=== PATIENT | female | born 1965 | race Caucasian/White ===

== ENCOUNTER 2019-09-13 14:20 | Emergency (ER) | payer BC ==
[2019-09-13 14:31] VITALS: BP 141/83; PULSE 72; TEMP 98.6; BMI 20.1
[2019-09-13] MEDS ORDERED: SODIUM CHLORIDE 1,000 ML IV STA (15:05)
--- NOTE | 2019-09-13 15:17 | PDOC ---
History of Present Illness - General Chief Complaint: Pain Stated Complaint: ABDOMINAL PAIN RADIATES TO CHEST Time Seen by Provider: 09/13/19 14:25 - History of Present Illness Initial Comments: 09/13/19 15:15 54 F with h/o fibromyalgia, GERD, presenting to ED with epigastric pain, N+V. Pt states that the pain woke her from sleep this morning at 3 am. She denies any F/C. States the pain radiates into her chest. Denies SOB. Pt went to an urgent care, where she had an EKG and UA that were normal. They gave her reglan , which made the pain worse. Pt was then instructed to come to the ED. While in the ED, pt began to vomit. Denies any blood or coffee grounds emesis. Denies diarrhea. Pt has no prior abdominal surgeries. Past History - Past Medical History Allergies/Adverse Reactions: Allergies Allergy/AdvReac Type Severity Reaction Status Date / Time No Known Allergies Allergy Unverified 09/13/19 15:09 Home Medications: Ambulatory Orders NK [No Known Home Medication] 09/13/19 COPD: No Other medical history: DENIES - Psycho Social/Smoking Cessation Hx Smoking History: Never smoked Hx Alcohol Use: Yes (SOCIAL) Drug/Substance Use Hx: No Review of Systems - Review of Systems Comments:: 09/13/19 15:16 "GENERAL/CONSTITUTIONAL: No fever or chills. No weakness. HEAD, EYES, EARS, NOSE AND THROAT: No change in vision. No ear pain or discharge. No sore throat. CARDIOVASCULAR: No chest pain, no shortness of breath, no loss of consciousness RESPIRATORY: No cough, wheezing, or hemoptysis. GASTROINTESTINAL: + epigastric pain, N+V, no diarrhea or constipation. GENITOURINARY: No dysuria, frequency, or change in urination. MUSCULOSKELETAL: No joint or muscle swelling or pain. No neck or back pain. SKIN: No rash NEUROLOGIC: No vertigo, no change in strength/sensation. ENDOCRINE: No increased thirst. No abnormal weight change. HEMATOLOGIC/LYMPHATIC: No anemia, easy bleeding, or history of blood clots. ALLERGIC/IMMUNOLOGIC: No hives or skin allergy. *Physical Exam - Vital Signs Last Vital Signs Temp Pulse Resp BP Pulse Ox 98.6 F 72 16 141/83 100 09/13/19 14:22 09/13/19 14:22 09/13/19 14:22 09/13/19 14:22 09/13/19 14:22 - Physical Exam 09/13/19 15:17 "GENERAL: Awake, alert, and fully oriented, in no acute distress. HEAD: No signs of trauma EYES: PERRLA, EOMI, sclera anicteric, conjunctiva clear ENT: Auricles normal inspection, hearing grossly normal, nares patent, oropharynx clear without exudates. Moist mucosa NECK: Nontender, no stepoffs, Normal ROM, supple, no lymphadenopathy, JVD, or masses LUNGS: Breath sounds equal, clear to auscultation bilaterally. No wheezes, and no crackles HEART: Regular rate and rhythm, normal S1 and S2, no murmurs, rubs or gallops ABDOMEN: + epigastric and RUQ TTP, normoactive bowel sounds. No guarding, no rebound. No masses EXTREMITIES: Normal range of motion, no edema. No clubbing or cyanosis. No cords, erythema, or tenderness NEUROLOGICAL: Cranial nerves II through XII intact. 5/5 strength and sensation in all extremities, Normal speech, normal gait, normal cerebellar function SKIN: Warm, Dry, normal turgor, no rashes or lesions noted. ED Treatment Course - LABORATORY CBC & Chemistry Diagram: 09/13/19 15:10 09/13/19 15:10 - RADIOLOGY Radiology Studies Ordered: Category Date Time Status CHEST PA & LAT [RAD] Stat Radiology 09/13/19 15:05 Ordered ABDOMEN US [US] Stat Ultrasound 09/13/19 15:14 Ordered Medical Decision Making - Medical Decision Making 09/13/19 15:17 54 F with epigastric pain, N+V. Will evaluate for pancreatitis vs cholecystitis. Pt with no lower abdominal tenderness. EKG without signs of ischemia. - labs, lipase - CXR - RUQ sono - GI cocktail Labs wnl CXR and US normal Pt with continued pain despite medications Will obtain CT scan Pt signed out to oncoming attending at 7PM Discharge - Discharge Information Problems reviewed: Yes Clinical Impression/Diagnosis: Enteritis Condition: Improved Disposition: HOME - Follow up/Referral Referrals: [facility] [place] [facility] [place] [Provider Group] - Patient Discharge Instructions Patient Printed Discharge Instructions: DI for Abdominal Pain-Adult Additional Instructions: Return to the emergency department immediately with ANY new, persistent or worsening symptoms including worsening abdominal pain, fevers, inability to tolerate oral intake, chest pain, shortness of breath or any other concerns. Stay well hydrated. You MUST call and follow up with your primary care doctor and GI doctor with in 5 days for reevluation. Your emergency department visit is not complete without a followup with your doctor for reevaluation. Please make sure your doctor reviews the results of your emergency evaluation. Print Language: MOROCCAN - Post Discharge Activity
[2019-09-13 15:27] LABS: BASO % 0.5 % (0-2.0); EOS % 0.9 % (0-4.5); HEMOGLOBIN 14.1 GM/dl (10.7-15.3); LYMPH % 19.1 % (8-40); MCH 29.9 pg (25.7-33.7); MCHC 32.8 g/dl (32.0-36.0); MEAN PLT VOLUME 8.9 fl (7.5-11.1); MONO % 5.1 % (3.8-10.2); NEUT % 74.4 % (42.8-82.8); PLATELET COUNT 283 K/MM3 (134-434); RBC 4.73 M/mm3 (3.60-5.2); RDW 12.7 % (11.6-15.6); WHITE BLOOD COUNT 6.3 K/mm3 (4.0-10.8)
[2019-09-13] MEDS ORDERED: ACETAMINOPHEN INJECTION 100 ML IVPB ONE (15:29)
[2019-09-13] MEDS ORDERED: FAMOTIDINE 20 MG/50 ML IVPB 20 MG/50 ML MG IVPB ONE ×2 (15:29→15:30)
[2019-09-13] MEDS ORDERED: MAG HYDROX/AL HYDROX/SIMETH 30 ML UNIT-DOSE CUP ONE (15:29)
[2019-09-13] MEDS ORDERED: ONDANSETRON 4 MG/2 ML VIAL ONE (15:30)
[2019-09-13] MEDS ORDERED: ACETAMINOPHEN 1000 MG/100 ML VIAL (NON FORMULARY) IVPB ONE (15:30)
[2019-09-13] MEDS ORDERED: ONDANSETRON 4 MG/2 ML VIAL IVPB ONE (15:30)
[2019-09-13] MEDS ORDERED: MAG HYDROX/AL HYDROX/SIMETH 30 ML UNIT-DOSE CUP PO ONE (15:30)
[2019-09-13 15:35] LABS: ALBUMIN 4.6 g/dl (3.4-5.0); BILIRUBIN,TOTAL 0.8 mg/dl (0.2-1); CREATININE 0.8 mg/dl (0.55-1.3); POTASSIUM 3.5 mmol/L (3.5-5.1); TOT PROT 7.6 g/dl (6.4-8.2)
[2019-09-13] MEDS ORDERED: morphine CARPU-JECT 4 MG/1 ML DISP.SYRIN IVPUSH ONE (15:44)
[2019-09-13] MEDS ORDERED: morphine SULFATE 4 MG/ML VIAL ONE (15:44)
--- NOTE | 2019-09-13 20:40 | PDOC ---
*Physical Exam - Vital Signs Last Vital Signs Temp Pulse Resp BP Pulse Ox 98.6 F 72 16 141/83 100 09/13/19 14:22 09/13/19 14:22 09/13/19 14:22 09/13/19 14:22 09/13/19 14:22 ED Treatment Course - LABORATORY CBC & Chemistry Diagram: 09/13/19 15:10 09/13/19 15:10 - ADDITIONAL ORDERS Additional order review: Laboratory Results 09/13/19 09/13/19 09/13/19 16:50 15:10 15:10 Sodium Potassium Chloride Carbon Dioxide Anion Gap BUN Creatinine Est GFR (CKD-EPI)AfAm Est GFR (CKD-EPI)NonAf Random Glucose Calcium Total Bilirubin AST ALT Alkaline Phosphatase Creatine Kinase 132 Troponin I Total Protein Albumin Lipase 135 Urine Color Yellow Urine Appearance Cloudy Urine pH 8.5 H Urine Protein Negative Urine Glucose (UA) Negative Urine Ketones 2+ H Urine Blood Negative Urine Nitrite Negative Urine Bilirubin Negative Urine Urobilinogen 0.2 Ur Leukocyte Esterase Negative 09/13/19 09/13/19 15:10 15:10 Sodium 137 Potassium 3.5 Chloride 99 Carbon Dioxide 29 Anion Gap 9 BUN 12.0 Creatinine 0.8 Est GFR (CKD-EPI)AfAm 97.55 Est GFR (CKD-EPI)NonAf 84.17 Random Glucose 100 Calcium 10.0 Total Bilirubin 0.8 AST 22 ALT 21 Alkaline Phosphatase 62 Creatine Kinase Troponin I < 0.03 Total Protein 7.6 Albumin 4.6 Lipase Urine Color Urine Appearance Urine pH Urine Protein Urine Glucose (UA) Urine Ketones Urine Blood Urine Nitrite Urine Bilirubin Urine Urobilinogen Ur Leukocyte Esterase 09/13/19 15:10 RBC 4.73 MCV 91.0 MCHC 32.8 RDW 12.7 MPV 8.9 Neutrophils % 74.4 Lymphocytes % 19.1 Monocytes % 5.1 Eosinophils % 0.9 Basophils % 0.5 - Medications Given in the ED: ED Medications Discontinued Medications Generic Name Dose Route Start Last Admin Trade Name Freq PRN Reason Stop Dose Admin Acetaminophen 1,000 mg 09/13/19 15:30 09/13/19 15:35 Ofirmev Injection - IVPB 09/13/19 15:31 1,000 mg ONCE ONE Administration Al Hydroxide/Mg Hydroxide 30 ml 09/13/19 15:30 09/13/19 15:39 Mylanta Oral Suspension - PO 09/13/19 15:31 30 ml ONCE ONE Administration Famotidine/Sodium Chloride 20 mg in 50 mls @ 100 mls/hr 09/13/19 15:30 15:39 Pepcid 20 Mg Premixed Ivpb - IVPB 09/13/19 15:59 100 mls/hr ONCE ONE Administration Sodium Chloride 1,000 mls @ 1,000 mls/hr 09/13/19 15:05 09/13/19 15:27 Normal Saline - IV 09/13/19 16:04 1,000 mls/hr ASDIR STA Administration Morphine Sulfate 4 mg 09/13/19 15:44 09/13/19 15:50 Morphine Injection - IVPUSH 09/13/19 15:45 4 mg ONCE ONE Administration Ondansetron HCl 4 mg 09/13/19 15:30 09/13/19 15:37 Zofran Injection IVPB 09/13/19 15:31 4 mg ONCE ONE Administration Medical Decision Making - Medical Decision Making 09/13/19 20:31 54y F hx of fibromyalgia, gerd, presents with crampy abdominal pain associated with a few episodes of nbnb n/v. Pts labs reviewed and are normal as is her UA, CXR, and CT. Pts US noted for polyps. Pt feeling a bit improved. tolerating oral intake. abd osft nontendner suspect her symptoms may be secondary to gastroenteritis. will dc to fu with PMD and her GI doctor. return precautions were dsicsused Discharge - Discharge Information Problems reviewed: Yes Clinical Impression/Diagnosis: Enteritis Condition: Improved Disposition: HOME - Admission No - Follow up/Referral [place] [facility] [place] [facility] [place] Group] - Patient Discharge Instructions Patient Printed Discharge Instructions: DI for Abdominal Pain-Adult Additional Instructions: Return to the emergency department immediately with ANY new, persistent or worsening symptoms including worsening abdominal pain, fevers, inability to tolerate oral intake, chest pain, shortness of breath or any other concerns. Stay well hydrated. You MUST call and follow up with your primary care doctor and GI doctor with in 5 days for reevluation. Your emergency department visit is not complete without a followup with your doctor for reevaluation. Please make sure your doctor reviews the results of your emergency evaluation. Print Language: COMORAN - Post Discharge Activity
--- NOTE | 2019-09-17 10:06 | EKG ---
Test Reason : Blood Pressure : / mmHG Vent. Rate : 068 BPM Atrial Rate : 068 BPM P-R Int : 140 ms QRS Dur : 094 ms QT Int : 424 ms P-R-T Axes : 073 082 080 degrees QTc Int : 450 ms NORMAL SINUS RHYTHM NORMAL ECG NO PREVIOUS ECGS AVAILABLE Confirmed by TANK LEWIS MD ([id number]) on 09/17/2019 10:06:35 AM Referred By: NAKIA BUTLER Confirmed By:TANK LEWIS MD
== END 2019-09-13 20:49 | disposition home or self-care (01) ==
LOC: FER 14:20
PROC: 3E033NZ Introduction of Analgesics, Hypnotics, Sedatives into Peripheral Vein, Percutaneous Approach (ICD-10-PCS; principal; 2019-09-13)
PROC: 3E033GC Introduction of Other Therapeutic Substance into Peripheral Vein, Percutaneous Approach (ICD-10-PCS; 2019-09-13)
PROC: 3E0337Z Introduction of Electrolytic and Water Balance Substance into Peripheral Vein, Percutaneous Approach (ICD-10-PCS; 2019-09-13)
DX: K52.9 Noninfective gastroenteritis and colitis, unspecified (principal)
CPT/HCPCS: 36415; 71046-TC-FY; 74177-TC; 76700-TC; 80053; 81003; 82550; 83690; 84484; 85025; 87086; 93005; 99282-25; J0131; J7030; Q9967